=== PATIENT | female | born 1995 | race African-American/Black ===

== ENCOUNTER 2022-04-21 02:12 | Emergency (ER) | payer SELFPAY ==
[~2022-04-21] VITALS: Ht 152.4 cm; Wt 95.4 kg
--- NOTE | 2022-04-21 02:31 | ED General ---
General Stated Complaint: LIGHT HEADED,SHARP ABD PAIN History of Present Illness Date Seen by Provider: Apr 21, 2022 Time Seen by Provider: 02:31 Initial Comments 26-year-old female with no significant PMH except schizophrenia and bipolar disease, is here with complaints of left lower quadrant abdominal pain which began a sudden onset last night. Pain is 7/10, colicky and intermittent. Denies fever, dysuria, hematuria, nausea and vomiting, chest pain, shortness of breath, palpitations, diarrhea. Allergies and Home Medications Allergies Coded Allergies: No Known Drug Allergies (Unverified , 04/21/22) Patient Home Medication List Home Medication List Reviewed: Yes Review of Systems Review of Systems Constitutional: no symptoms reported EENTM: no symptoms reported Respiratory: no symptoms reported Cardiovascular: no symptoms reported Gastrointestinal: LLQ Genitourinary: no symptoms reported Musculoskeletal: no symptoms reported Skin: no symptoms reported Psychiatric/Neurological: No Symptoms Reported Hematologic/Lymphatic: No Symptoms Reported Immunological/Allergic: no symptoms reported Physical Exam Vital Signs Vital Signs - First Documented 04/21/22 02:36 Temp 36.6 Pulse 84 Resp 20 B/P (MAP) 130/86 (101) Pulse Ox 99 O2 Delivery Room Air Capillary Refill : Height, Weight, BMI Height: '" Weight: lbs. oz. kg; BMI Method: General Appearance: No Apparent Distress HEENT: PERRL/EOMI Neck: Full Range of Motion, Normal Inspection, Non Tender Respiratory: Chest Non Tender, Lungs Clear, Normal Breath Sounds Cardiovascular: Regular Rate, Rhythm, No Edema Gastrointestinal: Normal Bowel Sounds, No Organomegaly, No Pulsatile Mass, Soft, Tenderness (LLQ) Back: No CVA Tenderness Extremity: Normal Capillary Refill, Normal Inspection, Normal Range of Motion Neurologic/Psychiatric: Alert, Oriented x3, No Motor/Sensory Deficits, Normal Mood/Affect Focused Exam Lactate Level 04/21/22 03:06: Lactic Acid Level 0.78 Lactic Acid Level Laboratory Tests Test 04/21/22 03:06 Lactic Acid Level 0.78 MMOL/L (0.50-2.00) Progress/Results/Core Measures Suspected Sepsis SIRS Temperature: Pulse: Respiratory Rate: Laboratory Tests 04/21/22 03:06: White Blood Count 6.9 Blood Pressure / Mean: 04/21/22 03:06: Lactic Acid Level 0.78 Laboratory Tests 04/21/22 03:06: Creatinine 0.71, INR Comment 0.9, Platelet Count 290, Total Bilirubin 0.2 Results/Orders Lab Results Laboratory Tests Test 04/21/22 02:29 04/21/22 03:06 04/21/22 04:00 Range/Units Urine Color YELLOW Urine Clarity CLEAR Urine pH 6.0 5-9 Urine Specific Wana >=1.030 1.016-1.022 Urine Protein NEGATIVE NEGATIVE Urine Glucose (UA) NEGATIVE NEGATIVE Urine Ketones NEGATIVE NEGATIVE Urine Nitrite NEGATIVE NEGATIVE Urine Bilirubin NEGATIVE NEGATIVE Urine Urobilinogen 0.2 < = 1.0 MG/DL Urine Leukocyte Esterase NEGATIVE NEGATIVE Urine RBC (Auto) NEGATIVE NEGATIVE Urine RBC NONE /HPF Urine WBC NONE /HPF Urine Squamous Epithelial Cells 2-5 /HPF Urine Crystals NONE /LPF Urine Bacteria NEGATIVE /HPF Urine Casts NONE /LPF Urine Mucus SMALL H /LPF Urine Culture Indicated NO Urine Test NEGATIVE NEGATIVE Urine Opiates Screen NEGATIVE NEGATIVE Urine Oxycodone Screen NEGATIVE NEGATIVE Urine Methadone Screen NEGATIVE NEGATIVE Urine Propoxyphene Screen NEGATIVE NEGATIVE Urine Barbiturates Screen NEGATIVE NEGATIVE Ur Tricyclic Antidepressants Screen NEGATIVE NEGATIVE Urine Phencyclidine Screen NEGATIVE NEGATIVE Urine Amphetamines Screen NEGATIVE NEGATIVE Urine Methamphetamines Screen NEGATIVE NEGATIVE Urine Benzodiazepines Screen NEGATIVE NEGATIVE Urine Cocaine Screen NEGATIVE NEGATIVE Urine Cannabinoids Screen POSITIVE H NEGATIVE White Blood Count 6.9 4.3-11.0 10^3/uL Red Blood Count 4.56 3.80-5.11 10^6/uL Hemoglobin 12.7 11.5-16.0 g/dL Hematocrit 39 35-52 % Mean Corpuscular Volume 86 80-99 fL Mean Corpuscular Hemoglobin 28 25-34 pg Mean Corpuscular Hemoglobin Concent 33 32-36 g/dL Red Cell Distribution Width 13.1 10.0-14.5 % Platelet Count 290 130-400 10^3/uL Mean Platelet Volume 9.3 9.0-12.2 fL Immature Granulocyte % (Auto) 0 % Neutrophils (%) (Auto) 58 42-75 % Lymphocytes (%) (Auto) 33 12-44 % Monocytes (%) (Auto) 7 0-12 % Eosinophils (%) (Auto) 1 0-10 % Basophils (%) (Auto) 0 0-10 % Neutrophils # (Auto) 4.0 1.8-7.8 10^3/uL Lymphocytes # (Auto) 2.3 1.0-4.0 10^3/uL Monocytes # (Auto) 0.5 0.0-1.0 10^3/uL Eosinophils # (Auto) 0.1 0.0-0.3 10^3/uL Basophils # (Auto) 0.0 0.0-0.1 10^3/uL Immature Granulocyte # (Auto) 0.0 0.0-0.1 10^3/uL Prothrombin Time 13.0 12.2-14.7 SEC INR Comment 0.9 0.8-1.4 Activated Partial Thromboplast Time 27 24-35 SEC Sodium Level 137 135-145 MMOL/L Potassium Level 3.9 3.6-5.0 MMOL/L Chloride Level 106 98-107 MMOL/L Carbon Dioxide Level 23 21-32 MMOL/L Anion Gap 8 5-14 MMOL/L Blood Urea Nitrogen 11 7-18 MG/DL Creatinine 0.71 0.60-1.30 MG/DL Estimat Glomerular Filtration Rate 122 BUN/Creatinine Ratio 15 Glucose Level 115 H 70-105 MG/DL Lactic Acid Level 0.78 0.50-2.00 MMOL/L Calcium Level 9.1 8.5-10.1 MG/DL Corrected Calcium 9.2 8.5-10.1 MG/DL Magnesium Level 1.9 1.6-2.4 MG/DL Total Bilirubin 0.2 0.1-1.0 MG/DL Aspartate Amino Transf (AST/SGOT) 15 5-34 U/L Alanine Aminotransferase (ALT/SGPT) 13 0-55 U/L Alkaline Phosphatase 61 40-136 U/L Total Protein 6.9 6.4-8.2 GM/DL Albumin 3.9 3.2-4.5 GM/DL Lipase 34 8-78 U/L Serum Alcohol < 10 <10 MG/DL Influenza Type A (RT-PCR) Not Detected Not Detecte Influenza Type B (RT-PCR) Not Detected Not Detecte SARS-CoV-2 RNA (RT-PCR) Not Detected Not Detecte My Orders Orders - JONEL PAYAN MD Alcohol (04/21/22 02:50) Cbc With Automated Diff (04/21/22 02:50) Comprehensive Metabolic Panel (04/21/22 02:50) Drug Screen Stat (Urine) (04/21/22 02:50) Hcg,Qualitative Urine (04/21/22 02:50) Lactic Acid Analyzer (04/21/22 02:50) Lipase (04/21/22 02:50) Magnesium (04/21/22 02:50) Protime With Inr (04/21/22 02:50) Partial Thromboplastin Time (04/21/22 02:50) Ua Culture If Indicated (04/21/22 02:50) Ct Abdomen/Pelvis W (04/21/22 02:50) Ketorolac Injection (Toradol Injection) (04/21/22 02:53) Ketorolac Injection (Toradol Injection) (04/21/22 03:30) Iohexol Injection (Omnipaque 350 Mg/Ml 1 (04/21/22 03:45) Sodium Chloride Flush (Catheter Flush Sy (04/21/22 03:45) Ns (Ivpb) (Sodium Chloride 0.9% Ivpb Bag (04/21/22 03:45) Covid 19 Inhouse Test (04/21/22 03:52) Influenza A And B By Pcr (04/21/22 03:52) Medications Given in ED Current Medications Medications Dose Ordered Sig/Marjorie Route Start Time Stop Time Status Last Admin Dose Admin Iohexol 100 ml ONCE ONCE IV 04/21/22 03:45 04/21/22 03:46 DC 04/21/22 04:06 100 ML Ketorolac Tromethamine 15 mg ONCE ONCE IVP 04/21/22 03:30 04/21/22 03:32 DC 04/21/22 03:47 15 MG Sodium Chloride 10 ml NEEDED PRN IV 04/21/22 03:45 04/21/22 04:06 10 ML Sodium Chloride 100 ml ONCE ONCE IV 04/21/22 03:45 04/21/22 03:46 DC 04/21/22 04:06 80 ML Vital Signs/I&O 04/21/22 02:36 Temp 36.6 Pulse 84 Resp 20 B/P (MAP) 130/86 (101) Pulse Ox 99 O2 Delivery Room Air Capillary Refill : Progress Note : Progress Note ABDOMINAL PAIN: MARIJUANA INDUCED: - CT ABD : unremarkable - Labs normal except for positive marijuana on UDS - Advised to stop marijuana - Keep well hydrated - Follow up with PCP in the next 5 days -The patient was seen in the ED, and treated appropriately to presentation at a specific point in time. Patient is informed that there is a possibility that disease and illness can evolve and change in acuity rapidly or slowly after patient is discharged from the ER. Precautionary advice given to the patient for immediate return to ER if symptoms worsen or do not resolve, and to seek emergency care sooner rather than later. Pt also advised on the importance of PCP follow up and compliance with management and follow up plan with PCP and/or specialist, as this is part of the management plan. Pt verbally expressed understanding. Departure Impression Primary Impression: Abdominal pain Qualified Codes: R10.32 - Left lower quadrant pain Additional Impression: Marijuana abuse Disposition: HOME, SELF-CARE Condition: Stable Departure-Patient Inst. Referrals: NO,LOCAL PHYSICIAN (PCP/Family) Primary Care Physician Patient Instructions: Marijuana Use and Addiction (DC), Stomach Ache and Stomach Upset Add. Discharge Instructions: - Advised to stop marijuana - Keep well hydrated - Follow up with PCP in the next 5 days JONEL PAYAN MD Apr 21, 2022 02:31
[2022-04-21 03:00] LABS: BILIRUBIN,URINE NEGATIVE (NEGATIVE); CLARITY,URINE CLEAR; COLOR,URINE YELLOW; GLUCOSE, URINE (UA) NEGATIVE (NEGATIVE); KETONES,URINE NEGATIVE (NEGATIVE); LEUKOCYTE ESTERASE ,URINE NEGATIVE (NEGATIVE); NITRITE,URINE NEGATIVE (NEGATIVE); PROTEIN,URINE NEGATIVE (NEGATIVE)
[2022-04-21 03:09] LABS: HCG,QUALITATIVE URINE NEGATIVE (NEGATIVE)
[2022-04-21 03:10] LABS: BACTERIA,URINE NEGATIVE /HPF
[2022-04-21 03:14] LABS: AMPHETAMINE SCREEN, URINE NEGATIVE (NEGATIVE); BARBITURATE SCREEN URINE NEGATIVE (NEGATIVE); BENZODIAZEPINES SCREEN URINE NEGATIVE (NEGATIVE); CANNABINOID SCREEN, URINE POSITIVE (NEGATIVE); COCAINE SCREEN URINE NEGATIVE (NEGATIVE); METHADONE STAT NEGATIVE (NEGATIVE); OPIATE SCREEN URINE NEGATIVE (NEGATIVE); OXYCODONE STAT NEGATIVE (NEGATIVE); PROPOXYPHENE STAT NEGATIVE (NEGATIVE); TRICYCLIC ANTIDEPRESSANTS SCRE NEGATIVE (NEGATIVE)
[2022-04-21 03:15] LABS: BASOPHILS % (AUTO) 0 % (0-10); EOSINOPHILS # (AUTO) 0.1 10^3/uL (0.0-0.3); EOSINOPHILS % (AUTO) 1 % (0-10); HEMATOCRIT 39 % (35-52); HEMOGLOBIN 12.7 g/dL (11.5-16.0); LYMPHOCYTES # (AUTO) 2.3 10^3/uL (1.0-4.0); LYMPHOCYTES % (AUTO) 33 % (12-44); MEAN CORPUSCULAR HEMOGLOBIN 28 pg (25-34); MEAN CORPUSCULAR HGB CONC 33 g/dL (32-36); MEAN CORPUSCULAR VOLUME 86 fL (80-99); MEAN PLATELET VOLUME 9.3 fL (9.0-12.2); MONOCYTES # (AUTO) 0.5 10^3/uL (0.0-1.0); MONOCYTES % (AUTO) 7 % (0-12); NEUTROPHILS % (AUTO) 58 % (42-75); PLATELET COUNT 290 10^3/uL (130-400); WHITE BLOOD COUNT 6.9 10^3/uL (4.3-11.0)
[2022-04-21] MEDS: KETOROLAC 15 MG/ML VIAL IVP STA (03:18)
[2022-04-21 03:26] LABS: ALBUMIN 3.9 GM/DL (3.2-4.5); CHLORIDE 106 MMOL/L (98-107); INR 0.9 (0.8-1.4); POTASSIUM 3.9 MMOL/L (3.6-5.0); SODIUM 137 MMOL/L (135-145)
[2022-04-21 03:28] LABS: CALCIUM 9.1 MG/DL (8.5-10.1)
[2022-04-21 03:29] LABS: GLUCOSE 115 MG/DL (70-105); TOTAL PROTEIN 6.9 GM/DL (6.4-8.2)
[2022-04-21 03:30] LABS: CARBON DIOXIDE 23 MMOL/L (21-32)
[2022-04-21 03:31] LABS: BILIRUBIN,TOTAL 0.2 MG/DL (0.1-1.0)
[2022-04-21 03:32] LABS: ALKALINE PHOSPHATASE 61 U/L (40-136)
[2022-04-21 03:33] LABS: CREATININE SERUM 0.71 MG/DL (0.60-1.30); GFR ESTIMATED 122
[2022-04-21 03:34] LABS: BUN/CREATININE RATIO 15
[2022-04-21 03:35] LABS: MAGNESIUM 1.9 MG/DL (1.6-2.4)
[2022-04-21 03:36] LABS: ALANINE AMINOTRANSFERASE 13 U/L (0-55); LIPASE 34 U/L (8-78)
[2022-04-21] MEDS: KETOROLAC 30 MG/ML VIAL IVP ONE (03:47)
[2022-04-21] MEDS: IOHEXOL 350 MG/ML 100 ML (OMNIPAQUE 350) VIAL IV ONE (04:06)
[2022-04-21] MEDS: NS 100 ML (IVPB) BAG IV ONE (04:06)
[2022-04-21] MEDS: CATHETER FLUSH 10 ML SYR IV PRN (04:06)
[2022-04-21 05:08] VITALS: BP 97/60
--- NOTE | 2022-04-21 06:48 | Diagnostic Imaging Report ---
PROCEDURE: CT abdomen and pelvis with contrast. TECHNIQUE: Multiple contiguous axial images were obtained through the abdomen and pelvis after administration of intravenous contrast. Auto Exposure Controls were utilized during the CT exam to meet ALARA standards for radiation dose reduction. All CT scans use one or more of the following dose optimizing techniques: automated exposure control, MA and/or KvP adjustment based on patient size and exam type or iterative reconstruction. INDICATION: Left lower quadrant abdominal pain. COMPARISON: None FINDINGS: Included portions of the lung bases are clear. There is mild cardiomegaly. CT ABDOMEN: Normal appendix is identified. Small bowel loops are nondistended. The kidneys, adrenal glands, spleen, pancreas, and liver have a normal CT appearance. There is no loculated fluid collection, free fluid or free air within the abdomen. No abnormal mesenteric or retroperitoneal adenopathy is seen. Osseous structures show no acute abnormalities CT PELVIS: Urinary bladder is unopacified and minimally distended. No calculi are seen within the bladder. There is no loculated fluid collection, free fluid or free air. No abnormal lymph nodes are seen. Osseous structures show no acute abnormalities. IMPRESSION: 1. No acute abnormalities seen within the abdomen or pelvis. 2. Mild cardiomegaly. Dictated by: Dictated on workstation # [id number]
== END 2022-04-21 05:14 | disposition home or self-care (01) ==
LOC: ER 02:21
DX: F12.10 Cannabis abuse, uncomplicated (principal); R10.32 Left lower quadrant pain; Z20.822 Contact with and (suspected) exposure to COVID-19; Z28.310 Unvaccinated for COVID-19
CPT/HCPCS: 74177; 80053; 80306; 81000; 83605; 83690; 83735; 84703; 85025; 85610; 85730; 87636; 99284; G0480; 36415; 80320